=== PATIENT | female | born 1945 | race Caucasian/White ===

== ENCOUNTER 2016-12-22 08:54 | Inpatient (IN) | payer MEDICARE, MEDICAID ==
--- NOTE | 2016-12-22 09:17 | ED Physician Chart ---
Chief Complaint/HPI - Patient Information Date Seen:: 12/22/16 Time Seen:: 09:00 Chief Complaint:: cough History of Present Illness:: pt admits to cough x 2 days with dyspnea, fever, chills; no C/P, Abdominal Pain , A/N/V/D/C, hemoptysis, melena, hematochezia, hematemesis, urinary s/s, H/As, neck pain Historian:: Patient, EMS, Medical Records Review:: Nurse's Note Reviewed, Old Chart Reviewed, Transfer documents Reviewed Review of Systems - Review of Systems General/Constitutional: Fever, No fever, Chills, No chills, No weight loss, No weakness, No diaphoresis, Edema, No edema, No loss of appetite Skin: No skin lesions, No rash, No bruising Head: No headache, No light-headedness Eyes: No loss of vision, No pain, No diplopia ENT: No earache, No nasal drainage, No sore throat, No tinnitus Neck: No neck pain, No swelling, No thyromegaly, No stiffness, No mass noted Cardio Vascular: No chest pain, No palpitations, PND, No PND, orthopnea, No orthopnea, No edema Pulmonary: SOB, No SOB, Cough, No cough, No sputum, No wheezing GI: No nausea, No vomiting, No diarrhea, No pain, No melena, No hematochezia, No constipation, No hematemesis G/U: No dysuria, No frequency, No hematuria Musculoskeletal: No bone or joint pain, No back pain, No muscle pain Endocrine: No polyuria, No polydipsia Psychiatric: Prior psych history, No prior psych history, No depression, No anxiety, No suicidal ideation Hematopoietic: No bruising, No lymphadenopathy Allergic/Immuno: No urticaria, No angioedema Neurological: No syncope, No focal symptoms, No weakness, No paresthesia, No headache, No seizure, No dizziness, No confusion, No vertigo Past Medical History - Past Medical History Past Medical History: HTN, DVT/PE, Dyslipidemia, PUD/GERD, Other (Schizophrenia) Family History: HTN, DVT/PE Social History: Smoker, No Alcohol, No Drug Use, Single, Care Facility Surgical History: None Psychiatricy History: Schizophrenia Family Medical History - Family Member Mother History Unknown: Yes Physical Exam - Physical Examination General/Constitutional: Awake, Well-developed, well-nourished, Alert, No distress, GCS 15, Non-toxic appearing, Ambulatory Head: Atraumatic Eyes: Lids, conjuctiva normal, PERRL, EOMI Skin: Nl inspection, No rash, No skin lesions, No ecchymosis, Well hydrated, No lymphadenopathy ENMT: External ears, nose nl, Nasal exam nl, Lips, teeth, gums nl Neck: Nontender, Full ROM w/o pain, No JVD, No nuchal rigidity, No bruit, No mass, No stridor Respiratory: Nl effort/Exclusion, Clear to Auscultation, No Wheeze/Rhonchi/ Rales (Lungs: + rales and rhonchi) Cardio Vascular: RRR (Irregular Irregular Rhythm), No murmur, gallop, rubs, NL S1 S2 GI: No tenderness/rebounding/guarding, No organomegaly, No hernia, Normal BS's, Nondistended, No mass/bruits, No McBurney tenderness : No CVA tenderness Extremities: No tenderness or effusion, Full ROM, normal strength in all extremities, No edema (+ PTE), Normal digits & nails Neuro/Psych: Alert/oriented, DTR's symmetric, Normal sensory exam, Normal motor strength, Judgement/insight normal, Mood normal, Normal gait, No focal deficits Misc: normal gait, Normal back, No paraspinal tenderness Labs/Radiology/EKG Results - Lab Results Results: BNP: 177 - Radiology Results Results: CXR: RLL Infiltrate; + CHF; + Pacemaker - EKG Interpretations EKG Time:: 09:35 (Ectopic Atrial Rhythm; LBBB) ED Septic Shock - . Is Septic Shock (SBP<90, OR Lactate>4 mmol\L) present?: No - <6hrs of presentation: Assessment of Lungs: Rhonchi, Rales Assessment of Heart: Documented in PE EKG Interpretation: Documented in Result Capillary refill evaluation: Capillary refill < 2 secs, Capillary refill > 2 secs, Other, Documented in PE Skin Exam: Edema, Documented in PE Reassessment (Disposition) - Reassessment Reassessment Condition:: Improved - Diagnosis Diagnosis:: Pneumonia; CHF; Dyspnea - Aftercare/Follow up Instructions Aftercare/Follow-Up Instructions:: Counseled pt & family regarding lab results/ diagnosis & need follow up - Patient Disposition Discharge/Transfer:: Acute Care w/in this hosp Admitted to:: Telemetry Spoke to:: Dr. Mejias Condition at Disposition:: Stable, Improved
[2016-12-22 09:45] LABS: % EOSINOPHILS 1.5 % (0.0-5.0); % LYMPHOCYTES 9.6 % (20.0-50.0); % MONOCYTES 9.7 % (2.0-10.0); % NEUTROPHILS 78.2 % (40.0-80.0); HEMATOCRIT 31.6 % (35.0-45.0); HEMOGLOBIN 10.5 gm/dL (11.7-16.1); MEAN CORPUSCULAR HEMOGLOBIN 26.8 pg (27.0-31.0); MEAN CORPUSCULAR HGB CONC 33.1 pg (28.0-36.0); MEAN PLATELET VOLUME 8.7 fl; NEUTROPHILE ABSOLUTE 4.9 Th/cmm (1.8-8.0); PLATELET COUNT 206 Th/cmm (150-400); RED CELL DISTRIBUTION WIDTH 14.7 % (11.5-20.0); WHITE BLOOD COUNT 6.3 Th/cmm (4.8-10.8)
[2016-12-22 09:53] LABS: ANION GAP 9.5 (7.0-16.0); BUN/CREATININE RATIO 15.4; CALCIUM SERUM 9.6 mg/dL (8.6-10.3); CREATININE - SERUM 1.3 mg/dL (0.6-1.2); POTASSIUM SERUM 3.5 mEq/L (3.5-5.1)
[2016-12-22] MEDS ORDERED: Levofloxacin 500mg/100mL 500 MG/100 ML BAG IV ONE ×2 (09:56→10:23)
[2016-12-22 09:57] LABS: TROP I 0.02 ng/mL (0.01-0.05)
[2016-12-22 10:10] LABS: INR 2.28 (0.5-1.4); PROTHROMBIN TIME (TEST) 24.8 SECONDS (9.5-11.5)
[2016-12-22] MEDS ORDERED: Albuterol/Ipratropium Neb 3 ML AERS HHN SCH (11:56)
[2016-12-22] MEDS ORDERED: Albuterol/Ipratropium Neb 3 ML AERS HHN ONE ×2 (12:06→15:29)
--- NOTE | 2016-12-22 12:39 | Internal Medicine Prog Note ---
Internal Medicine Subjective - Subjective Service Date: 12/22/16 ([facility] [id number]) Internal Medicine Objective - Results Result Diagrams: 12/22/16 09:30 12/22/16 09:30 Recent Labs: Laboratory Last Values WBC 6.3 Th/cmm (4.8-10.8) 12/22/16 09:30 RBC 3.90 Mil/cmm (3.80-5.20) 12/22/16 09:30 Hgb 10.5 gm/dL (11.7-16.1) L 12/22/16 09:30 Hct 31.6 % (35.0-45.0) L 12/22/16 09:30 MCV 81.0 fl (81-100) 12/22/16 09:30 MCH 26.8 pg (27.0-31.0) L 12/22/16 09:30 MCHC Differential 33.1 pg (28.0-36.0) 12/22/16 09:30 RDW 14.7 % (11.5-20.0) 12/22/16 09:30 Plt Count 206 Th/cmm (150-400) 12/22/16 09:30 MPV 8.7 fl 12/22/16 09:30 Neutrophils % 78.2 % (40.0-80.0) 12/22/16 09:30 Lymphocytes % 9.6 % (20.0-50.0) L 12/22/16 09:30 Monocytes % 9.7 % (2.0-10.0) 12/22/16 09:30 Eosinophils % 1.5 % (0.0-5.0) 12/22/16 09:30 Basophils % 1.0 % (0.0-2.0) 12/22/16 09:30 PT 24.8 SECONDS (9.5-11.5) H 12/22/16 09:30 INR 2.28 (0.5-1.4) H 12/22/16 09:30 PTT (Actin FS) 40.7 SECONDS (26.0-38.0) H 12/22/16 09:30 D-Dimer 2280 ng/mL (100-400) H 12/22/16 09:30 Sodium 135 mEq/L (136-145) L 12/22/16 09:30 Potassium 3.5 mEq/L (3.5-5.1) 12/22/16 09:30 Chloride 97 mEq/L (98-107) L 12/22/16 09:30 Carbon Dioxide 32.0 mEq/L (21.0-31.0) H 12/22/16 09:30 Anion Gap 9.5 (7.0-16.0) 12/22/16 09:30 BUN 20 mg/dL (7-25) 12/22/16 09:30 Creatinine 1.3 mg/dL (0.6-1.2) H 12/22/16 09:30 Est GFR ( Amer) 52.2 ml/min (>90) 12/22/16 09:30 Est GFR (Non-Af Amer) 43.2 ml/min 12/22/16 09:30 BUN/Creatinine Ratio 15.4 12/22/16 09:30 Glucose 119 mg/dL (70-105) H 12/22/16 09:30 Whole Bld Lactic Acid 0.72 mmol/L (0.60-1.99) 12/22/16 09:30 Calcium 9.6 mg/dL (8.6-10.3) 12/22/16 09:30 Troponin I 0.02 ng/mL (0.01-0.05) 12/22/16 09:30 B-Natriuretic Peptide 177.0 pg/mL (5.0-100.0) H 12/22/16 09:30 - Physical Exam Vitals and I&O: Vital Signs Temp 97.5 F 12/22/16 11:18 Pulse 66 12/22/16 12:00 Resp 16 12/22/16 12:00 BP 125/57 12/22/16 11:18 Pulse Ox 90 12/22/16 12:00 Active Medications: Current Medications Albuterol/Ipratropium (Duoneb Neb) 3 ml HHN Q4H LINDA Stop: 02/20/17 11:55 Last Admin: 12/22/16 12:09 Dose: 3 ml - Procedures Procedures: Procedures Procedure Code Date CATARAC PHACOEMULS/ASPIR 13.41 01/08/99 CATARACT SURG W/IOL 1 STAGE 67518 01/08/99 CONTINUOUS INVASIVE MECHANICAL VENTILATION <96 CONSEC HRS 96.71 09/01/07 FREEING OF BOWEL ADHESION 81847 09/01/07 INSERT INDWELLING CATH 57.94 03/25/10 INSERT LENS AT CATAR EXT 13.71 01/08/99 INSERT TEMP BLADDER CATH 39573 03/25/10 OTH LYSIS-PERITONEAL ADHES 54.59 09/01/07 OTHER OPEN UMBILICAL HERNIORRHAPHY 53.49 09/01/07 RPR UMBIL SHASTA REDUC > 5 YR 13477 09/01/07 SMALL BOWEL FIXATION NEC 46.62 09/01/07 Internal Medicine Assmt/Plan - Assessment Assessment: COMMUNITY ACQUIRED PNA AFIB CHF HTN MORBID OBESITY CHF
[2016-12-22] MEDS ORDERED: Albuterol Nebulizer 2.5mg/3mL IH SCH ×2 (12:45→17:00)
[2016-12-22] MEDS ORDERED: Hydrocortisone Sodium Succ 100 mg Vial IVP SCH (13:00)
[2016-12-22] MEDS ORDERED: Ipratropium Neb 0.5 mg/2.5 mL UD IH SCH (13:00)
--- NOTE | 2016-12-22 13:47 | History & Physical ---
CHIEF COMPLAINT: Cough. HISTORY OF PRESENT ILLNESS: This is a 71-year-old female who has a 2-day history of productive cough associated with shortness of breath and fever. The patient is a resident of [facility]. The patient denies any chest pain, any nausea or vomiting. However, she does state that sometimes when she lies down flat she states that she feels like as if she is drowning. PAST MEDICAL HISTORY: Hypertension, DVT, dyslipidemia, GERD, and schizophrenia, CHF. FAMILY HISTORY: Hypertension. SOCIAL HISTORY: The patient is a smoker, denies any alcohol or any drugs. The patient resides at a [facility]. SURGICAL HISTORY: The patient has a pacemaker. REVIEW OF SYSTEMS: GENERAL: Denies any fevers, any chills. CARDIOVASCULAR: Denies any chest pain. RESPIRATORY: Complaints of shortness of breath and productive cough. GASTROINTESTINAL: Denies any nausea, vomiting or any abdominal pain. GENITOURINARY: Denies any dysuria. All other systems are reviewed by me and are negative. PHYSICAL EXAMINATION: GENERAL: The patient is awake, obese in no apparent distress. VITAL SIGNS: Temperature 97.5, heart rate ____, blood pressure 125/57, respirations 18, O2 92%. HEENT: Head; normocephalic, atraumatic. NECK: Supple. No mass. LUNGS: Rhonchi bilaterally. HEART: Regular rhythm. ABDOMEN: Soft, nontender. LABORATORY DATA: WBC 6.3, H and H 10.5 and 31.6, platelet of 206. D-dimer 2280. Sodium 135, potassium 3.5, chloride 97, carbon dioxide 32.0, BUN 30, creatinine is 1.3. DIAGNOSTICS: The patient had a chest x-ray done in the ER and it shows right lower lobe infiltrate. ASSESSMENT: 1. Community-acquired pneumonia. 2. Atrial fibrillation. 3. Respiratory failure. 4. Congestive heart failure. 5. Morbid obesity. 6. Hypertension. PLAN: The patient to be admitted to the telemetry unit. The patient will have a consultation with Dr. Damon Gillespie and Dr. Antonino Gillespie as well. DuoNeb will also be ordered. The patient to be on ____ monitor. The patient on traffic monitor specialist. The patient will be kept on a low sodium diet. CBC and BMP will be monitored as well. We will continue to monitor the patient. [facility]# [id number]
[2016-12-22] MEDS: Promethazine DM 6.25/15mg-5mL 5 ML SYR PO SCH ×2 (14:16→21:13)
--- NOTE | 2016-12-22 14:50 | Diagnostic Imaging Report ---
Portable chest x-ray HISTORY: Shortness of breath The heart is enlarged but is a very poor inspiration. There are bilateral lower lobe interstitial infiltrates. Findings may be associated with edema and congestive heart failure. Underlying pneumonia cannot be excluded. Clinical correlation is needed. Hernia pacemaker lead wires project over the right atrium and right ventricle. Surgical clips are seen within the upper abdomen. IMPRESSION: 1. Cardiomegaly along with bilateral infiltrates suggesting congestive heart failure and probable edema. Underlying pneumonia cannot be excluded. Clinical correlation is needed.
[2016-12-22] MEDS: cefTRIAXone 1 GM in Sodium Chloride 0.9% 50 ML IV SCH (15:28)
[2016-12-22] MEDS: Albuterol/Ipratropium Neb 3 ML AERS HHN SCH ×2 (15:30→19:08)
[2016-12-22 15:38] VITALS: BP 113/69
[2016-12-22] MEDS: Azithromycin 500 MG in Sodium Chloride 0.9% 250 ML IV SCH (16:07)
[2016-12-22] MEDS ORDERED: ALBUTEROL SULFATE IH SCH (17:00)
[2016-12-22] MEDS: Budesonide 0.5 Mg/2 mL Ud HHN SCH (19:08)
--- NOTE | 2016-12-22 21:52 | Admit Criteria Form ---
Admit Criteria Forms - Admit Criteria Diagnosis: PNEUMONIA, COMMUNITY ACQUIRED Clinical Indications for Admission to Inpatient Care ( Place 'X' for any and all applicable criteria): Admission is indicated for ANY ONE of the following (1)(2)(3): [X]I. Hypoxemia indicated by ANY ONE of the following: [X]a) Oxygen saturation less than 90% while breathing room air [ ]b) PO2 less than 60 mm Hg (8.0 kPa) while breathing room air [ ]c) Chronic lung disease with significant deterioration from baseline oxygenation [ ]II. Appropriate diagnostic testing and treatment unavailable in outpatient or recovery facility (eg,testing or infection control measures unavailable(10) [ ]III. Moderate-risk or high-risk category patients (Pneumonia Severity Index (PSI) class IV or V, or CURB-65 score of 3 or greater). [ ]IV. Outpatient treatment failure as indicated by ANY ONE of the following(9) : [ ]a) Failure to respond to antibiotic (eg, resistant organism) [ ]b) Clinically significant adverse effects from medication (eg, vomiting) [ ]c) Complications of pneumonia (eg, empyema, bacteremia) [ ]d) Significant worsening of comorbid cond necessitating inpatient care (eg, chronic heart failure) [ ]V. Intermediate-risk category patients (eg, PSI class III or CURB-65 score 2) who do not improve with initial therapy and observation. [ ]. Immunocompromised patients (eg, AIDS, chronic steroid use) at moderate or high risk based on clinical evaluation. [ ]VII. Complicated pleural effusions (eg, exudative, loculated) [ ]VIII.Hemodynamic instability [ ] IX. Altered mental status that is severe or persistent. [ ]X. Dehydration that is severe or persistent. [ ]XI. Bacteremia [ ]XII. Respiratory finding (eg. tachypnea) that do not respond to outpatient or observation care treatment Extended stay beyond goal length of stay may be needed for (20) [ ]a) Unclear diagnosis [ ]b) Pleural disease [ ]c) Severe pneumonia or treatment failure (25 [ ]d) Respiratory failure (anticipate invasive or noninvasive ventilatory support) [ ]e) Abnormal serum electrolytes (serum Na concentration less than 135 mEq/L (mmol/L) (32)(33) [ ]f) Clinically significant comorbid illness (eg, heart failure, atrial fibrillation with rapid heart rate, alcohol withdrawal, renal insufficiency)(34)(35) [ ]g) Comorbid acute exacerbation of COPD(36) [ ]h) Concomitant diagnosis of malignancy that may be associated with malnutrition, immunologic impairment, or bronchial obstruction. [ ]i) Concomitant altered mental status [ ]j) Culture-identified Gram-negative or antibiotic-resistant organism (eg, Pseudomonas, methicillin-resistant Staphylococcus aureus)(30) [ ]k) Healthcare-associated pneumonia The original [facility] [employer] content created by [employer] has been revised. The portions of the content which have been revised are identified through the use of italic text or in bold, and [facility] has neither reviewed nor approved the modified material. All other unmodified content is copyright [facility] [employer]. Please see references footnoted in the original [facility] [employer] edition 2016 Admit Criteria Met?: Yes
--- NOTE | 2016-12-23 05:08 | Consultation ---
REASON FOR CONSULTATION: Coughing and shortness of breath. CONSULT NOTE: This is a 71 years old female, who has a history of significant morbid obesity, history of pacemaker put in showing some cardiac arrhythmia, with coronary artery disease, presents with history of few days of ____ coughing, some wheezing, some shortness of breath, but says ____ coughing is going for the last couple of months, did give history of some wheezing. Denies much of sputum expectoration. Denied ofany fever, any pleuritic chest pain, or any swelling of the legs. As the patient's symptoms persisted there was question of pneumonia/____ congestive heart failure. The patient was admitted for further care and necessary treatment. She has some dyspeptic symptoms, has history of snoring, history of weakness and tiredness, and history of significant morbid obesity. PAST MEDICAL HISTORY: Hypertension, dyslipoproteinemia, gastroesophageal reflux disease, and also schizophrenia. FAMILY HISTORY: Hypertension. SOCIAL HISTORY: Smoking history: None. Denies ever smoking. Denies alcohol or any illicit drug. Lives in a board and care. PHYSICAL EXAMINATION: GENERAL: This is an elderly, slightly heavy set looking female, awake, alert, oriented, not in any acute distress. VITAL SIGNS: The patient's recorded vitals, temperature is 97.5, pulse is in 60s, respirations 20s, saturation 92% on room air. HEENT: Examination of the head is essentially unremarkable. Pupils appear to be equal and reacting to light. Conjunctivae are slightly pallor. Oral cavity essentially unremarkable with small oropharyngeal opening with lower jaw edentulous. NECK: No nodes in the neck could be palpated. Good bilateral carotid upstroke. CHEST: Shows scattered wheezing with diminished air entry. HEART: ____ regular. ABDOMEN: Soft, nontender. EXTREMITIES: Shows no peripheral edema. LABORATORY DATA: White count is 6.3, hemoglobin 10.5, INR is 2.2. Electrolytes; BUN is 20, BNP is 177, glucose is 117. Chest x-ray shows portable, technique-heavy interstitial marking at both the bases. ASSESSMENT/IMPRESSION: The patient with persistent coughing and wheezing, most likely this is asthmatic bronchitis, complicated by gastroesophageal reflux disease and also suspect obstructive sleep apnea syndrome with previous history of cardiovascular disorder including pacemaker put and other things. PLANS AND SUGGESTIONS: We will give inhaled bronchodilator, empiric antibiotics, sputum studies, and also we will get a CT of chest for better evaluation and see how she does and go from there. [facility]# [id number]
--- NOTE | 2016-12-23 05:10 | Consultation ---
The patient of Dr. Mejias. HISTORY AND PHYSICAL: This is a 45-[id number] morbidly obesity female patient who was recently discharged from [facility]. The patient started complaining of shortness of breath, cough with expectoration, following this the patient was brought to the Emergency Room and the patient is admitted for pneumonia, acute exacerbation of asthma and congestive heart failure. PAST MEDICAL HISTORY: The patient has a history of congestive heart failure, diastolic dysfunction, asthma, sick sinus syndrome with pacemaker, GERD, schizophrenia, hypertension, DVT of the leg, hyperlipidemia, morbid obesity, obstructive sleep apnea, paroxysmal atrial fibrillation, small pericardial effusion, left atrial enlargement, trace mitral regurgitation, trace tricuspid regurgitation, ejection fraction 55%, major depression, vitamin D deficiency and COPD. FAMILY HISTORY: Unremarkable. SOCIAL HISTORY: The patient has no history of smoking or alcohol abuse at the present time. ALLERGIES: No known allergies. PHYSICAL EXAMINATION: VITAL SIGNS: Blood pressure 140/80, pulse 88 and respirations 28. HEAD: Normocephalic. No lumps or bumps. EYES: Pupils equal, reactive to light. Fundi show AV nicking, sclerae white, conjunctivae pink. NECK: Carotid 2+. Normal upstroke. JVD 10 cm above the sternal angle. Thyroid not palpable. Lymph nodes not palpable. CHEST: Shows increased AP diameter. No kyphosis or scoliosis. LUNGS: Bilateral wheezing, rhonchi and prolonged expiration. HEART: PMI fifth intercostal space with [id number] line. S1, S2, S3, S4, systolic murmur, grade 2/6, lower left sternal border without radiation. ABDOMEN: Soft. Liver and spleen not palpable. The patient has morbid obesity. Hepatojugular reflux palpitation. No organomegaly. Bowel sounds active. RECTAL: Deferred. EXTREMITIES: Peripheral pulses 1+ and pedal edema 1+. CLINICAL IMPRESSION: 1. Pneumonia. 2. Acute exacerbation of asthma. 3. Congestive heart failure, diastolic dysfunction, sick sinus syndrome with pacemaker, gastroesophageal reflux disease, schizophrenia, hypertension, DVT in the legs, hyperlipidemia, morbid obesity, obstructive sleep apnea, paroxysmal atrial fibrillation and small pericardial effusion. PLAN: Admit the patient. Continue the patient on present management, get echocardiogram, diuretics and BNP level. J[facility]# [id number]
[2016-12-23 07:28] LABS: HEMATOCRIT 32.8 % (35.0-45.0); HEMOGLOBIN 10.7 gm/dL (11.7-16.1); MEAN CELL VOLUME 80.2 fl (81-100); MEAN CORPUSCULAR HEMOGLOBIN 26.2 pg (27.0-31.0); MEAN CORPUSCULAR HGB CONC 32.7 pg (28.0-36.0); PLATELET COUNT 203 Th/cmm (150-400); RED BLOOD COUNT 4.09 Mil/cmm (3.80-5.20); RED CELL DISTRIBUTION WIDTH 14.7 % (11.5-20.0); WHITE BLOOD COUNT 5.8 Th/cmm (4.8-10.8)
[2016-12-23 07:41] LABS: BUN - UREA NITROGEN 15 mg/dL (7-25); BUN/CREATININE RATIO 13.6; CALCIUM SERUM 9.5 mg/dL (8.6-10.3); CARBON DIOXIDE 34.3 mEq/L (21.0-31.0); CHLORIDE 104 mEq/L (98-107); CREATININE - SERUM 1.1 mg/dL (0.6-1.2); GLUCOSE 119 mg/dL (70-105); POTASSIUM SERUM 3.3 mEq/L (3.5-5.1); SODIUM SERUM 138 mEq/L (136-145)
[2016-12-23 07:43] LABS: ALB/GLOB RATIO 0.8 (1.0-1.8); BILIRUBIN,TOTAL 0.3 mg/dL (0.3-1.0)
[2016-12-23] MEDS: Ipratropium Neb 0.5 mg/2.5 mL UD IH SCH (07:45)
[2016-12-23] MEDS: Budesonide 0.5 Mg/2 mL Ud HHN SCH ×2 (07:46→19:42)
[2016-12-23] MEDS: Albuterol/Ipratropium Neb 3 ML AERS HHN SCH ×4 (07:46→19:42)
[2016-12-23 08:16] LABS: TSH 0.61 uIU/ml (0.34-5.60)
[2016-12-23] MEDS: Promethazine DM 6.25/15mg-5mL 5 ML SYR PO SCH ×3 (08:16→20:47)
[2016-12-23] MEDS: Aspirin 81mg Chewable Tab PO SCH (08:17)
--- NOTE | 2016-12-23 08:49 | Diagnostic Imaging Report ---
CT scan of the chest without intravenous contrast HISTORY: Pneumonia Total DLP equals 428 CTDI equals 12.1 Axial sections were obtained from a level above the clavicles down to level below the diaphragm. The heart is enlarged. Findings consistent with a small pericardial effusion or pericardial thickening noted. There is a moderate-sized hiatal hernia. No other abnormal mediastinal masses. There are small bilateral pleural effusions. Bilateral lower lobe pulmonary parenchymal densities consistent with pneumonia and/or atelectasis noted. Limited sections of the diaphragm demonstrate multiple surgical clips in the region of the left renal fossa and brianna hepatis region. IMPRESSION: 1. Bilateral predominantly lower lobe pulmonary parenchymal changes consistent with atelectasis and/or pneumonia. 2. Marked cardiomegaly with evidence of a small pericardial effusion or pericardial thickening 3. Moderate retrocardiac hiatal hernia 4. Surgical changes within the upper abdomen and left renal fossa region.
[2016-12-23] MEDS ORDERED: Pneumococcal Vaccine 0.5 mL Vial IM ONE (09:00)
[2016-12-23] MEDS ORDERED: RANITIDINE HCL 150 MG PO SCH (09:00)
[2016-12-23 10:06] LABS: BAND NEUTROPHILE 1 % (0-10); EOSINOPHIL 1 % (0-5); NEUTROPHILS 66 % (40-80); TOTAL CELLS COUNTED 100
[2016-12-23 10:07] LABS: ANISOCYTOSIS 1+; PLATELET ESTIMATE ADEQUATE (NORMAL); PLATELET MORPHOLOGY PLATELET CLUMPS SEEN (NORMAL)
[2016-12-23 10:08] LABS: pH 7.38 (7.35-7.45)
[2016-12-23 10:09] LABS: ABG SOURCE Arterial; ALLEN TEST Positive; BE(B) 10.9 mEq/L (-3.0-3.0); FIO2 36; HCO3 33.3 mEq/L (20.0-26.0)
[2016-12-23] MEDS ORDERED: Albuterol Nebulizer 2.5mg/3mL HHN SCH (11:00)
--- NOTE | 2016-12-23 12:46 | Cardiology ---
Patient of Dr. Mejias. M-MODE ECHOCARDIOGRAM: Mitral valve, anterior leaflet of mitral valve shows normal excursion, EF velocity. Posterior leaflet of the mitral valve shows normal excursion. Left ventricular posterior wall shows increased thickness, normal excursion. Interventricular septum shows increased thickness, normal excursion, hypertrophy of the left ventricle, ejection fraction 55%. Left atrium enlarged 4.5 cm. Aortic root shows normal dimension, normal excursion of aortic leaflets. CONCLUSION: Hypertrophy of the left ventricle. Left atrial enlargement, ejection fraction 55%. 2D ECHO: Long axis view showed normal side left ventricle with hypertrophy of the left ventricle. Left atrium enlarged. Aortic root shows normal dimension, normal excursion of aortic leaflets. Short axis view of mitral valve normal. Short axis view of aortic valve normal. Apical four chamber view showed normal sized left ventricle with hypertrophy of the left ventricle. Left atrium enlarged. Right ventricular cavity, right atrium normal, no pericardial effusion. CONCLUSION: Hypertrophy of the left ventricle, ejection fraction 55%. Doppler study shows prominent A wave consistent with poor compliance of left ventricle. Mild tricuspid regurgitation, prominent A wave consistent with poor compliance of left ventricle. [facility]# [id number]
[2016-12-23] MEDS: cefTRIAXone 1 GM in Sodium Chloride 0.9% 50 ML IV SCH (12:58)
[2016-12-23] MEDS ORDERED: Potassium Chloride 20 mEq ER Tab PO ONE ×2 (13:00→14:48)
[2016-12-23] MEDS: Azithromycin 500 MG in Sodium Chloride 0.9% 250 ML IV SCH (14:10)
--- NOTE | 2016-12-23 14:51 | Internal Medicine Prog Note ---
Internal Medicine Subjective - Subjective Patient seen and examined:: with staff, chart reviewed Patient is:: awake, interactive Patient Complaints of:: congestion Per staff patient is:: noncompliant, confused Internal Medicine Objective - Results Result Diagrams: 12/23/16 06:30 12/23/16 06:30 Recent Labs: Laboratory Last Values WBC 5.8 Th/cmm (4.8-10.8) 12/23/16 06:30 RBC 4.09 Mil/cmm (3.80-5.20) 12/23/16 06:30 Hgb 10.7 gm/dL (11.7-16.1) L 12/23/16 06:30 Hct 32.8 % (35.0-45.0) L 12/23/16 06:30 MCV 80.2 fl (81-100) L 12/23/16 06:30 MCH 26.2 pg (27.0-31.0) L 12/23/16 06:30 MCHC Differential 32.7 pg (28.0-36.0) 12/23/16 06:30 RDW 14.7 % (11.5-20.0) 12/23/16 06:30 Plt Count 203 Th/cmm (150-400) 12/23/16 06:30 MPV 9.0 fl 12/23/16 06:30 Neutrophils % 78.2 % (40.0-80.0) 12/22/16 09:30 Band Neutrophils % 1 % (0-10) 12/23/16 06:30 Lymphocytes % 9.6 % (20.0-50.0) L 12/22/16 09:30 Monocytes % 9.7 % (2.0-10.0) 12/22/16 09:30 Eosinophils % 1.5 % (0.0-5.0) 12/22/16 09:30 Basophils % 1.0 % (0.0-2.0) 12/22/16 09:30 Neutrophils (Manual) 66 % (40-80) 12/23/16 06:30 Lymphocytes 18 % (20-50) L 12/23/16 06:30 Monocytes 14 % (2-10) H 12/23/16 06:30 Eosinophils 1 % (0-5) 12/23/16 06:30 Platelet Estimate ADEQUATE (NORMAL) 12/23/16 06:30 Platelet Morphology PLATELET CLUMPS SEEN (NORMAL) 12/23/16 06:30 Anisocytosis 1+ 12/23/16 06:30 RBC Morph Micro Appear ABNORMAL (NORMAL) 12/23/16 06:30 PT 24.8 SECONDS (9.5-11.5) H 12/22/16 09:30 INR 2.28 (0.5-1.4) H 12/22/16 09:30 PTT (Actin FS) 40.7 SECONDS (26.0-38.0) H 12/22/16 09:30 D-Dimer 2280 ng/mL (100-400) H 12/22/16 09:30 Specimen Source Arterial 12/23/16 09:46 Sample Site Right Radial 12/23/16 09:46 pH 7.38 (7.35-7.45) 12/23/16 09:46 pCO2 65.0 mmHg (35.0-45.0) H* 12/23/16 09:46 pO2 59.0 mmHg (80.0-100.0) L 12/23/16 09:46 HCO3 33.3 mEq/L (20.0-26.0) H 12/23/16 09:46 Base Excess 10.9 mEq/L (-3.0-3.0) H 12/23/16 09:46 O2 Saturation 90.0 % (92.0-100.0) L 12/23/16 09:46 Nils Test Positive 12/23/16 09:46 Inspired O2 36 12/23/16 09:46 Critical Value PING 12/23/16 09:46 Sodium 138 mEq/L (136-145) 12/23/16 06:30 Potassium 3.3 mEq/L (3.5-5.1) L 12/23/16 06:30 Chloride 104 mEq/L (98-107) 12/23/16 06:30 Carbon Dioxide 34.3 mEq/L (21.0-31.0) H 12/23/16 06:30 Anion Gap 3.0 (7.0-16.0) L 12/23/16 06:30 BUN 15 mg/dL (7-25) 12/23/16 06:30 Creatinine 1.1 mg/dL (0.6-1.2) 12/23/16 06:30 Est GFR ( Amer) > 60.0 ml/min (>90) 12/23/16 06:30 Est GFR (Non-Af Amer) 52.3 ml/min 12/23/16 06:30 BUN/Creatinine Ratio 13.6 12/23/16 06:30 Glucose 119 mg/dL (70-105) H 12/23/16 06:30 Whole Bld Lactic Acid 0.72 mmol/L (0.60-1.99) 12/22/16 09:30 Calcium 9.5 mg/dL (8.6-10.3) 12/23/16 06:30 Total Bilirubin 0.3 mg/dL (0.3-1.0) 12/23/16 06:30 Direct Bilirubin 0.00 mg/dL (0.0-0.2) 12/23/16 06:30 AST 16 U/L (13-39) 12/23/16 06:30 ALT 14 U/L (7-52) 12/23/16 06:30 Alkaline Phosphatase 67 U/L (34-104) 12/23/16 06:30 Ammonia 42 umol/L (16-53) 12/23/16 06:30 Troponin I 0.02 ng/mL (0.01-0.05) 12/22/16 09:30 B-Natriuretic Peptide 177.0 pg/mL (5.0-100.0) H 12/22/16 09:30 Total Protein 6.8 gm/dL (6.0-8.3) 12/23/16 06:30 Albumin 3.1 gm/dL (3.7-5.3) L 12/23/16 06:30 Globulin 3.7 gm/dL 12/23/16 06:30 Albumin/Globulin Ratio 0.8 (1.0-1.8) L 12/23/16 06:30 TSH 0.61 uIU/ml (0.34-5.60) 12/23/16 06:30 - Physical Exam Vitals and I&O: Vital Signs Temp 98.2 F 12/23/16 08:00 Pulse 60 12/23/16 11:35 Resp 16 12/23/16 11:35 BP 123/56 12/23/16 08:16 Pulse Ox 90 12/23/16 11:35 Intake & Output 12/22/16 12/23/16 12/23/16 18:59 06:59 18:59 Intake Total 300 Balance 300 Intake: Intake, IV Amount 300 Azithromycin 500 mg In 250 Sodium Chloride 0.9% 250 ml @ 250 mls/hr IV Q24HR [facility] Rx#:[id number] cefTRIAXone 1 gm In 50 Sodium Chloride 0.9% 50 ml @ 100 mls/hr IV Q24HR [facility] Rx#:[id number] Other: # Voids 2 # Bowel Movements 0 Stool Characteristics Soft Soft Soft Formed Formed Formed Active Medications: Current Medications Acetaminophen (Tylenol) 650 mg PO Q4HR PRN PRN Reason: Pain or Fever >101 Stop: 02/20/17 13:09 Albuterol Sulfate (Albuterol 2.5mg/3ml Neb Ud) 2.5 mg HHN QIDRT [facility] Stop: 02/20/17 16:59 Albuterol/Ipratropium (Duoneb Neb) 3 ml HHN [id number] [facility] Stop: 02/20/17 14:59 Last Admin: 12/23/16 14:41 Dose: 3 ml Aspirin (Aspirin Chewable) 81 mg PO DAILY [facility] Stop: 02/21/17 08:59 Last Admin: 12/23/16 08:17 Dose: 81 mg Budesonide (Pulmicort) 0.5 mg HHN BIDRT [facility] Stop: 02/20/17 18:59 Last Admin: 12/23/16 07:46 Dose: 0.5 mg Clonidine HCl (Catapres) 0.1 mg PO Q6HR PRN PRN Reason: SBP GREATER THAN 160 Stop: 02/20/17 13:09 Famotidine (Pepcid) 20 mg PO BID [facility] Stop: 02/20/17 16:59 Last Admin: 12/23/16 08:17 Dose: 20 mg Furosemide (Lasix) 40 mg IVP DAILY [facility] Stop: 02/21/17 08:59 Last Admin: 12/23/16 08:16 Dose: 40 mg Gabapentin (Neurontin) 100 mg PO TID [facility] Stop: 02/20/17 13:59 Last Admin: 12/23/16 14:12 Dose: 100 mg Ceftriaxone Sodium 1 gm/ (Sodium Chloride) 50 mls @ 100 mls/hr IV Q24HR [facility] Stop: 02/20/17 12:44 Last Admin: 12/23/16 12:58 Dose: 100 mls/hr Azithromycin 500 mg/ Sodium (Chloride) 250 mls @ 250 mls/hr IV Q24HR [facility] Stop: 02/20/17 14:29 Last Admin: 12/23/16 14:10 Dose: 250 mls/hr Ipratropium [place] (Atrovent Neb 0.5mg/2.5ml) 0.5 mg IH QID [facility] Stop: 02/20/17 16:59 Losartan Potassium (Cozaar) 50 mg PO BID [facility] Stop: 02/20/17 16:59 Last Admin: 12/23/16 08:12 Dose: Not Given Montelukast Sodium (Singulair) 10 mg PO DAILY [facility] Stop: 02/21/17 08:59 Last Admin: 12/23/16 08:18 Dose: 10 mg Ondansetron HCl (Zofran) 4 mg IV Q8H PRN PRN Reason: Nausea / Vomiting Stop: 02/20/17 13:09 Potassium Chloride (Klor-Con) 40 meq PO X1 [facility] Stop: 12/23/16 14:49 Promethazine HCl/Dextromethorphan (Phenergan Dm 6.25/15mg-5 Ml) 5 ml PO TID [facility] Stop: 02/20/17 13:59 Last Admin: 12/23/16 14:12 Dose: 5 ml Quetiapine Fumarate (Seroquel) 300 mg PO HS [facility] PRN Reason: Protocol Stop: 02/20/17 20:59 Last Admin: 12/22/16 21:13 Dose: 300 mg Tramadol HCl (Ultram) 50 mg PO Q8H PRN PRN Reason: PAIN Stop: 02/20/17 12:38 Last Admin: 12/23/16 05:25 Dose: 50 mg Warfarin Sodium (Coumadin) 3 mg PO 1300 [facility] PRN Reason: Protocol Stop: 02/21/17 08:59 Last Admin: 12/23/16 12:56 Dose: 3 mg General: lethargic, congested HEENT: NC/AT, PERRLA Neck: Supple, No JVD Lungs: congested, wheezing, rales Cardiovascular: RRR, Normal S1, Normal S2 Abdomen: soft non-tender, globular, positive bowel sound Extremities: excoriation, contracture Neurological: disorganized, unsteady, unable to follow command - Procedures Procedures: Procedures Procedure Code Date CATARAC PHACOEMULS/ASPIR 13.41 01/08/99 CATARACT SURG W/IOL 1 STAGE 95100 01/08/99 CONTINUOUS INVASIVE MECHANICAL VENTILATION <96 CONSEC HRS 96.71 09/01/07 FREEING OF BOWEL ADHESION 70278 09/01/07 INSERT INDWELLING CATH 57.94 03/25/10 INSERT LENS AT CATAR EXT 13.71 01/08/99 INSERT TEMP BLADDER CATH 37608 03/25/10 OTH LYSIS-PERITONEAL ADHES 54.59 09/01/07 OTHER OPEN UMBILICAL HERNIORRHAPHY 53.49 09/01/07 RPR UMBIL SHASTA REDUC > 5 YR 03860 09/01/07 SMALL BOWEL FIXATION NEC 46.62 09/01/07 Internal Medicine Assmt/Plan - Assessment Assessment: COMMUNITY ACQUIRED PNA AFIB CHF HTN MORBID OBESITY CHF - Plan Plan: cont on iv abx o2 bronchodilator check cxr namrata cisse
--- NOTE | 2016-12-24 00:49 | Progress Notes ---
PROBLEM LIST: 1. Acute exacerbation of asthmatic bronchitis. 2. Cardiac arrhythmia. 3. Suspect obstructive sleep apnea syndrome. 4. History of psychiatric illness. SYMPTOMS: The patient is feeling better, less shortness of breath, etc., very minimal coughing, which is not much productive. PHYSICAL EXAMINATION: VITAL SIGNS: Temperature is 98, heart rate is in 60s, respiration 16 and saturation 90% on 3 liters of oxygen. NECK: Veins not visualized. Good bilateral carotid upstroke. CHEST: Shows dorsal kyphosis with occasional rhonchi. HEART: Regular. ABDOMEN: Soft and nontender. LABORATORY DATA: White count is 5.8, eosinophils is 1 and the patient's ABG shows compensated respiratory acidemia on 36% of oxygen. ASSESSMENT: The patient is clinically stable, slightly evnjd-eo-hczcnpt respiratory failure with acute asthmatic bronchitis with underlying component of cardia associated with obstructive sleep apnea syndrome. PLANS AND SUGGESTIONS: We will go ahead and continue current treatment, follow up another chest x-ray, etc., and blood gases and start mobilizing the patient and go from there. JOB# [id number]
[2016-12-24 07:19] LABS: % BASOPHILS 0.8 % (0.0-2.0); % EOSINOPHILS 2.9 % (0.0-5.0); % MONOCYTES 14.2 % (2.0-10.0); % NEUTROPHILS 65.1 % (40.0-80.0); HEMATOCRIT 32.4 % (35.0-45.0); HEMOGLOBIN 10.7 gm/dL (11.7-16.1); MEAN CELL VOLUME 80.4 fl (81-100); MEAN CORPUSCULAR HEMOGLOBIN 26.5 pg (27.0-31.0); MEAN CORPUSCULAR HGB CONC 32.9 pg (28.0-36.0); MEAN PLATELET VOLUME 8.9 fl; NEUTROPHILE ABSOLUTE 3.4 Th/cmm (1.8-8.0); PLATELET COUNT 212 Th/cmm (150-400); RED BLOOD COUNT 4.03 Mil/cmm (3.80-5.20); RED CELL DISTRIBUTION WIDTH 15.1 % (11.5-20.0); WHITE BLOOD COUNT 5.2 Th/cmm (4.8-10.8)
[2016-12-24] MEDS: Budesonide 0.5 Mg/2 mL Ud HHN SCH ×2 (07:31→19:14)
[2016-12-24] MEDS: Albuterol/Ipratropium Neb 3 ML AERS HHN SCH ×2 (07:31→19:14)
[2016-12-24 08:09] LABS: T3 FREE 1.6 pg/mL (2.0-4.4); T4 FREE 1.39 ng/dL (0.82-1.77)
[2016-12-24 08:28] LABS: BUN - UREA NITROGEN 12 mg/dL (7-25); CALCIUM SERUM 9.5 mg/dL (8.6-10.3); CHLORIDE 102 mEq/L (98-107); GLUCOSE 115 mg/dL (70-105); POTASSIUM SERUM 3.8 mEq/L (3.5-5.1); SODIUM SERUM 140 mEq/L (136-145)
[2016-12-24 08:46] LABS: ANION GAP 7.2 (7.0-16.0); CARBON DIOXIDE 34.6 mEq/L (21.0-31.0)
--- NOTE | 2016-12-24 09:26 | Diagnostic Imaging Report ---
CHEST X-RAY: AP view INDICATION: Shortness of breath, hypoxemia COMPARISON: Chest x-ray 12/22/[address] chest on 12/22/2016 FINDINGS: Left chest wall pacemaker apparatus is again noted with leads in the region right atrium and right ventricle. Congestive changes seen with hazy bilateral infiltrates and small left effusion. Cardiomegaly is noted with atherosclerosis. Degenerative changes of the spine are noted. Postsurgical changes of the upper abdomen is noted. IMPRESSION: Congestive changes with hazy bilateral infiltrates and small left effusion. Cardiomegaly and atherosclerotic vascular disease. Pacemaker noted.
[2016-12-24] MEDS: Aspirin 81mg Chewable Tab PO SCH (09:36)
[2016-12-24] MEDS: Promethazine DM 6.25/15mg-5mL 5 ML SYR PO SCH ×3 (09:37→20:46)
[2016-12-24] MEDS: Ipratropium Neb 0.5 mg/2.5 mL UD IH SCH (12:35)
--- NOTE | 2016-12-24 13:05 | Internal Medicine Prog Note ---
Internal Medicine Subjective - Subjective Service Date: 12/24/16 Patient seen and examined:: with staff Patient Complaints of:: congestion Per staff patient is:: no adverse event Internal Medicine Objective - Results Result Diagrams: 12/24/16 06:10 12/24/16 06:10 Recent Labs: Laboratory Last Values WBC 5.2 Th/cmm (4.8-10.8) 12/24/16 06:10 RBC 4.03 Mil/cmm (3.80-5.20) 12/24/16 06:10 Hgb 10.7 gm/dL (11.7-16.1) L 12/24/16 06:10 Hct 32.4 % (35.0-45.0) L 12/24/16 06:10 MCV 80.4 fl (81-100) L 12/24/16 06:10 MCH 26.5 pg (27.0-31.0) L 12/24/16 06:10 MCHC Differential 32.9 pg (28.0-36.0) 12/24/16 06:10 RDW 15.1 % (11.5-20.0) 12/24/16 06:10 Plt Count 212 Th/cmm (150-400) 12/24/16 06:10 MPV 8.9 fl 12/24/16 06:10 Neutrophils % 65.1 % (40.0-80.0) 12/24/16 06:10 Band Neutrophils % 1 % (0-10) 12/23/16 06:30 Lymphocytes % 17.0 % (20.0-50.0) L 12/24/16 06:10 Monocytes % 14.2 % (2.0-10.0) H 12/24/16 06:10 Eosinophils % 2.9 % (0.0-5.0) 12/24/16 06:10 Basophils % 0.8 % (0.0-2.0) 12/24/16 06:10 Neutrophils (Manual) 66 % (40-80) 12/23/16 06:30 Lymphocytes 18 % (20-50) L 12/23/16 06:30 Monocytes 14 % (2-10) H 12/23/16 06:30 Eosinophils 1 % (0-5) 12/23/16 06:30 Platelet Estimate ADEQUATE (NORMAL) 12/23/16 06:30 Platelet Morphology PLATELET CLUMPS SEEN (NORMAL) 12/23/16 06:30 Anisocytosis 1+ 12/23/16 06:30 RBC Morph Micro Appear ABNORMAL (NORMAL) 12/23/16 06:30 PT 24.8 SECONDS (9.5-11.5) H 12/22/16 09:30 INR 2.28 (0.5-1.4) H 12/22/16 09:30 PTT (Actin FS) 40.7 SECONDS (26.0-38.0) H 12/22/16 09:30 D-Dimer 2280 ng/mL (100-400) H 12/22/16 09:30 Specimen Source Arterial 12/23/16 09:46 Sample Site Right Radial 12/23/16 09:46 pH 7.38 (7.35-7.45) 12/23/16 09:46 pCO2 65.0 mmHg (35.0-45.0) H* 12/23/16 09:46 pO2 59.0 mmHg (80.0-100.0) L 12/23/16 09:46 HCO3 33.3 mEq/L (20.0-26.0) H 12/23/16 09:46 Base Excess 10.9 mEq/L (-3.0-3.0) H 12/23/16 09:46 O2 Saturation 90.0 % (92.0-100.0) L 12/23/16 09:46 Nils Test Positive 12/23/16 09:46 Inspired O2 36 12/23/16 09:46 Critical Value PING 12/23/16 09:46 Sodium 140 mEq/L (136-145) 12/24/16 06:10 Potassium 3.8 mEq/L (3.5-5.1) 12/24/16 06:10 Chloride 102 mEq/L (98-107) 12/24/16 06:10 Carbon Dioxide 34.6 mEq/L (21.0-31.0) H 12/24/16 06:10 Anion Gap 7.2 (7.0-16.0) 12/24/16 06:10 BUN 12 mg/dL (7-25) 12/24/16 06:10 Creatinine 1.0 mg/dL (0.6-1.2) 12/24/16 06:10 Est GFR ( Amer) > 60.0 ml/min (>90) 12/24/16 06:10 Est GFR (Non-Af Amer) 58.4 ml/min 12/24/16 06:10 BUN/Creatinine Ratio 12.0 12/24/16 06:10 Glucose 115 mg/dL (70-105) H 12/24/16 06:10 Whole Bld Lactic Acid 0.72 mmol/L (0.60-1.99) 12/22/16 09:30 Calcium 9.5 mg/dL (8.6-10.3) 12/24/16 06:10 Magnesium 2.0 mg/dL (1.9-2.7) 12/24/16 06:10 Total Bilirubin 0.3 mg/dL (0.3-1.0) 12/23/16 06:30 Direct Bilirubin 0.00 mg/dL (0.0-0.2) 12/23/16 06:30 AST 16 U/L (13-39) 12/23/16 06:30 ALT 14 U/L (7-52) 12/23/16 06:30 Alkaline Phosphatase 67 U/L (34-104) 12/23/16 06:30 Ammonia 42 umol/L (16-53) 12/23/16 06:30 Troponin I 0.02 ng/mL (0.01-0.05) 12/22/16 09:30 B-Natriuretic Peptide 234.0 pg/mL (5.0-100.0) H 12/24/16 06:10 Total Protein 6.8 gm/dL (6.0-8.3) 12/23/16 06:30 Albumin 3.1 gm/dL (3.7-5.3) L 12/23/16 06:30 Globulin 3.7 gm/dL 12/23/16 06:30 Albumin/Globulin Ratio 0.8 (1.0-1.8) L 12/23/16 06:30 Free T4 1.39 ng/dL (0.82-1.77) 12/23/16 08:25 Free T3 1.6 pg/mL (2.0-4.4) L 12/23/16 08:25 TSH 0.61 uIU/ml (0.34-5.60) 12/23/16 06:30 - Physical Exam Vitals and I&O: Vital Signs Temp 97.8 F 12/24/16 11:57 Pulse 72 12/24/16 12:36 Resp 18 12/24/16 12:36 BP 124/56 12/24/16 11:57 Pulse Ox 94 12/24/16 12:36 Intake & Output 12/23/16 12/24/16 12/24/16 18:59 06:59 18:59 Intake Total 950 300 Balance 950 300 Weight (lbs) 268 lb 6.4 oz Intake: Oral 600 300 Other 350 Other: # Voids 5 2 # Bowel Movements 0 Stool Characteristics Soft Soft Soft Formed Formed Formed Active Medications: Current Medications Acetaminophen (Tylenol) 650 mg PO Q4HR PRN PRN Reason: Pain or Fever >101 Stop: 02/20/17 13:09 Albuterol Sulfate (Albuterol 2.5mg/3ml Neb Ud) 2.5 mg HHN QIDRT [facility] Stop: 02/20/17 16:59 Last Admin: 12/24/16 12:35 Dose: 2.5 mg Albuterol/Ipratropium (Duoneb Neb) 3 ml HHN [id number] [facility] Stop: 02/20/17 14:59 Last Admin: 12/24/16 07:31 Dose: 3 ml Aspirin (Aspirin Chewable) 81 mg PO DAILY [facility] Stop: 02/21/17 08:59 Last Admin: 12/24/16 09:36 Dose: 81 mg Budesonide (Pulmicort) 0.5 mg HHN BIDRT [facility] Stop: 02/20/17 18:59 Last Admin: 12/24/16 07:31 Dose: 0.5 mg Clonidine HCl (Catapres) 0.1 mg PO Q6HR PRN PRN Reason: SBP GREATER THAN 160 Stop: 02/20/17 13:09 Famotidine (Pepcid) 20 mg PO BID [facility] Stop: 02/20/17 16:59 Last Admin: 12/24/16 09:38 Dose: 20 mg Furosemide (Lasix) 40 mg IVP DAILY [facility] Stop: 02/21/17 08:59 Last Admin: 12/23/16 08:16 Dose: 40 mg Gabapentin (Neurontin) 100 mg PO TID [facility] Stop: 02/20/17 13:59 Last Admin: 12/24/16 09:38 Dose: 100 mg Ceftriaxone Sodium 1 gm/ (Sodium Chloride) 50 mls @ 100 mls/hr IV Q24HR [facility] Stop: 02/20/17 12:44 Last Admin: 12/23/16 12:58 Dose: 100 mls/hr Azithromycin 500 mg/ Sodium (Chloride) 250 mls @ 250 mls/hr IV Q24HR [facility] Stop: 02/20/17 14:29 Last Admin: 12/23/16 14:10 Dose: 250 mls/hr Ipratropium [place] (Atrovent Neb 0.5mg/2.5ml) 0.5 mg IH QID [facility] Stop: 02/20/17 16:59 Last Admin: 12/24/16 12:35 Dose: 0.5 mg Losartan Potassium (Cozaar) 50 mg PO BID [facility] Stop: 02/20/17 16:59 Last Admin: 12/24/16 09:38 Dose: 50 mg Montelukast Sodium (Singulair) 10 mg PO DAILY [facility] Stop: 02/21/17 08:59 Last Admin: 12/24/16 09:38 Dose: 10 mg Ondansetron HCl (Zofran) 4 mg IV Q8H PRN PRN Reason: Nausea / Vomiting Stop: 02/20/17 13:09 Promethazine HCl/Dextromethorphan (Phenergan Dm 6.25/15mg-5 Ml) 5 ml PO TID [facility] Stop: 02/20/17 13:59 Last Admin: 12/24/16 09:37 Dose: 5 ml Quetiapine Fumarate (Seroquel) 300 mg PO HS [facility] PRN Reason: Protocol Stop: 02/20/17 20:59 Last Admin: 12/23/16 20:47 Dose: 300 mg Tramadol HCl (Ultram) 50 mg PO Q8H PRN PRN Reason: PAIN Stop: 02/20/17 12:38 Last Admin: 12/23/16 05:25 Dose: 50 mg Warfarin Sodium (Coumadin) 3 mg PO 1300 [facility] PRN Reason: Protocol Stop: 02/21/17 08:59 Last Admin: 12/23/16 12:56 Dose: 3 mg General: alert HEENT: NC/AT Neck: Supple Lungs: CTAB Cardiovascular: RRR, Normal S1, Normal S2, without murmur Abdomen: soft non-tender, non-distended, positive bowel sound Neurological: no change - Procedures Procedures: Procedures Procedure Code Date CATARAC PHACOEMULS/ASPIR 13.41 01/08/99 CATARACT SURG W/IOL 1 STAGE 68402 01/08/99 CONTINUOUS INVASIVE MECHANICAL VENTILATION <96 CONSEC HRS 96.71 09/01/07 FREEING OF BOWEL ADHESION 29307 09/01/07 INSERT INDWELLING CATH 57.94 03/25/10 INSERT LENS AT CATAR EXT 13.71 01/08/99 INSERT TEMP BLADDER CATH 80922 03/25/10 OTH LYSIS-PERITONEAL ADHES 54.59 09/01/07 OTHER OPEN UMBILICAL HERNIORRHAPHY 53.49 09/01/07 RPR UMBIL SHASTA REDUC > 5 YR 71205 09/01/07 SMALL BOWEL FIXATION NEC 46.62 09/01/07 Internal Medicine Assmt/Plan - Assessment Assessment: COMMUNITY ACQUIRED PNA AFIB CHF HTN MORBID OBESITY CHF - Plan Plan: SNF PLACEMENT INHALATION TX SUPPLEMENTAL OXYGEN CONTINUE CURRENT RX Nutritional Asmnt/Malnutr-PDOC - Dietary Evaluation Malnutrition Findings (Please click <Entered> for more info): Nutritional Asmnt/Malnutrition Start: 12/23/16 15: 55 Text: Status: Complete Freq: Document 12/23/16 16:01 GSUN (Rec: 12/23/16 16:19 GSUN [id number]) Nutritional Asmnt/Malnutrition Patient General Information Nutritional Screening High Risk Screening Diagnosis Community acquired PNA, atrial fibrillation, resp failure, CHF Pertinent Medical Hx/Surgical Hx HTN, DVT, dyslipidemia, GERD, schizophrenia, CHF Subjective Information 71 year old female from [facility]. Pt was soundly asleep during first sleep, unable to be woken up. RD visited pt again during meal time, observed pt slowly eating half of tray. Pt with nasal canula, coughing noted, no difficulties with eating observed. Pt apepared slightly confused, poor coordinations, spilling food over gown, pouring coffee into noodles, ignoring all RD's questions, but able to request for ice water. CBW via bedscale 268. 4lb. Current Diet Order/ Nutrition Support Low sodium Pertinent Medications Pepcid, Lasix, Zofran, Seroquel, Coumadin Pertinent Labs 12/23: glucose 119H Nutritional Hx/Data Height 5 ft 7 in Height (Calculated Centimeters) 170.2 Current Weight (lbs) 268 lb 6.4 oz Weight (Calculated Kilograms) 121.7 Weight (Calculated Grams) 774811.2 Robards Body Weight 135lb Weight Status Morbidly Obese GI Symptoms Skin Integrity/Comment: Derrell 18. Skin intact. Estimated Nutritional Goals BEE in Kcals: Adj wt of IBW Calories/Kcals/Kg AdjBW 167lb/76kg Kcals Calculated 2280kcal (30kcal/kg) Protein: Adj wt of IBW Protein Calculated 91-106g (1.2-1.4g/kg) Fluid: ml Per MD (hx. CHF) Nutritional Problem 1. Problem Problem Increased kcal and prot needs related to Etiology hypermetabolic state aeb Signs/Symptoms: pneumonia Intervention/Recommendation Comments 1. Continue with low sodium diet. Pt requires supervision with meals. Expected Outcomes/Goals Expected Outcomes/Goals 1. PO intake to meet at least 75% of estimated nutritional needs.
[2016-12-24] MEDS: cefTRIAXone 1 GM in Sodium Chloride 0.9% 50 ML IV SCH (14:02)
[2016-12-24] MEDS: Azithromycin 500 MG in Sodium Chloride 0.9% 250 ML IV SCH (15:45)
--- NOTE | 2016-12-25 03:44 | Progress Notes ---
PULMONARY PROGRESS NOTE PROBLEM LIST: 1. Acute on chronic respiratory failure. 2. Severe obstructive sleep apnea syndrome. 3. Basal infiltrate. 4. Underlying ____ psychiatric illness symptoms. SYMPTOMS: The patient is feeling so-so. She is able to walk this morning. No respiratory distress. She did use BiPAP 6 hours last night and still coughing, but not much sputum production. PHYSICAL EXAMINATION: VITAL SIGNS: Temperature is 97.8, blood pressure 124/56, and saturation is 93 on 3 liters. NECK: Veins could not be visualized. CHEST: Shows diminished air entry with occasional rhonchi. HEART: Regular. ABDOMEN: Soft, nontender. EXTREMITIES: Shows mild trace of peripheral edema. LABORATORY DATA: The patient's pertinent laboratory studies: CAT scan shows bilateral lower lobe infiltrate and also cardiomegaly, otherwise unremarkable, has some hiatal hernia. The patient's other laboratory studies show white count is 5.2, hemoglobin 10.7, and ABG shows compensated respiratory acidemia on 36%. ASSESSMENT: The patient is clinically improving with slight touch of pneumonia with asthmatic bronchitis with hiatal hernia with suspect obstructive sleep apnea syndrome. PLANS AND SUGGESTIONS: We will continue current treatment of aggressive respiratory care, inhalation treatment, etc., and aggressive physical therapy, continue BiPAP, and I will repeat chest x-ray in next day or two and go from there. JOB# [id number]
[2016-12-25 07:20] LABS: % BASOPHILS 0.8 % (0.0-2.0); % EOSINOPHILS 3.2 % (0.0-5.0); % LYMPHOCYTES 18.5 % (20.0-50.0); % MONOCYTES 13.1 % (2.0-10.0); % NEUTROPHILS 64.4 % (40.0-80.0); HEMATOCRIT 32.9 % (35.0-45.0); HEMOGLOBIN 10.7 gm/dL (11.7-16.1); MEAN CELL VOLUME 79.4 fl (81-100); MEAN CORPUSCULAR HEMOGLOBIN 25.8 pg (27.0-31.0); MEAN CORPUSCULAR HGB CONC 32.5 pg (28.0-36.0); MEAN PLATELET VOLUME 8.6 fl; NEUTROPHILE ABSOLUTE 3.6 Th/cmm (1.8-8.0); PLATELET COUNT 198 Th/cmm (150-400); RED BLOOD COUNT 4.15 Mil/cmm (3.80-5.20); RED CELL DISTRIBUTION WIDTH 14.5 % (11.5-20.0); WHITE BLOOD COUNT 5.5 Th/cmm (4.8-10.8)
[2016-12-25 07:37] LABS: ANION GAP 6.5 (7.0-16.0); BUN - UREA NITROGEN 11 mg/dL (7-25); BUN/CREATININE RATIO 12.2; CALCIUM SERUM 9.8 mg/dL (8.6-10.3); CARBON DIOXIDE 33.5 mEq/L (21.0-31.0); CHLORIDE 101 mEq/L (98-107); CREATININE - SERUM 0.9 mg/dL (0.6-1.2); GLUCOSE 110 mg/dL (70-105); SODIUM SERUM 137 mEq/L (136-145)
[2016-12-25] MEDS: Budesonide 0.5 Mg/2 mL Ud HHN SCH (07:47)
[2016-12-25] MEDS: Albuterol/Ipratropium Neb 3 ML AERS HHN SCH ×3 (07:47→15:13)
[2016-12-25] MEDS: Aspirin 81mg Chewable Tab PO SCH (09:24)
[2016-12-25] MEDS: Promethazine DM 6.25/15mg-5mL 5 ML SYR PO SCH ×2 (09:25→13:15)
[2016-12-25 09:35] LABS: pH 7.42 (7.35-7.45)
[2016-12-25 09:36] LABS: HCO3 10.5 mEq/L (20.0-26.0)
[2016-12-25 09:37] LABS: ABG SOURCE Arterial; ALLEN TEST YES; FIO2 44
[2016-12-25] MEDS: cefTRIAXone 1 GM in Sodium Chloride 0.9% 50 ML IV SCH (11:47)
[2016-12-25] MEDS: Azithromycin 500 MG in Sodium Chloride 0.9% 250 ML IV SCH (15:41)
--- NOTE | 2016-12-25 23:59 | Discharge Summary ---
CHIEF COMPLAINT: Coughing. FINAL DIAGNOSES: Pneumonia, congestive heart failure, chronic respiratory failure, atrial fibrillation, morbid obesity, hypertension. HISTORY: This is a 71 years old female with history of morbid obesity, hypertension, DVT, on anticoagulation, GERD, schizoaffective disorder, was admitted from nursing facility secondary to worsening cough. The patient was brought in the ER and admitted for further management. PHYSICAL EXAMINATION: VITAL SIGNS: Blood pressure 135/____, respirations 18, pulse 70, temperature 97.2. GENERAL: Elderly female, morbidly obese. NECK: Supple. No mass. LUNGS: Equal breath sounds, a few rhonchi. HEART: Regular rate and rhythm without systolic ejection murmur. ABDOMEN: Soft, nontender. EXTREMITIES: Positive excoriations. NEUROLOGIC: Limited. HOSPITAL COURSE: The patient was admitted to telemetry. The patient was referred to Dr. Antonino Gillespie for Pulmonary, Dr. Damon Gillespie for Cardiology. The patient was started on diuretic as well as IV antibiotic. The patient's condition is stable and cleared for discharge. CONDITION ON DISCHARGE: Fair. DISCHARGE INSTRUCTIONS: The patient to continue current medical regimen. The patient to be discharged ____. JOB# [id number]
--- NOTE | 2016-12-26 05:19 | Progress Notes ---
PULMONARY PROGRESS NOTE PROBLEM LIST: 1. Acute respiratory failure. 2. Bilateral patchy pneumonitis. 3. Asthmatic bronchitis. 4. Severe obstructive sleep apnea syndrome. 5. Morbid obesity with underlying history of psychiatric illness. SYMPTOMS: Nil. Feeling so-so. Still coughing and still shortness of breath, but no specific new symptoms. PHYSICAL EXAMINATION: VITAL SIGNS: Temperature is 98, pulse is 70, blood pressure 135/57, and saturation is 93% on 3 liters. NECK: Veins not visualized. CHEST: Shows occasional rhonchi with diminished air entry. HEART: Regular. ABDOMEN: Soft and nontender. LABORATORY DATA: The patient's white count is 5.5 and hemoglobin 10.7. Blood gases show compensated respiratory acidemia with slight decrease in pCO2, pO2 is 60, and this is on 44% of oxygen. ASSESSMENT: The patient clinically appears to be stable, slightly better, biochemically still not very good with significant numbers off the limits. PLANS AND SUGGESTIONS: We will continue current treatment. We will go ahead and get aggressive OT/PT, etc., and go from there. JOB# [id number]
== END 2016-12-25 17:30 | disposition short-term general hospital (02) | DRG 291 ==
LOC: ER 08:54 → TELE 10:46
PROVIDERS: ADMIT Internal Medicine; ATTEND Internal Medicine
DX: I50.23 Acute on chronic systolic (congestive) heart failure (principal); J18.9 Pneumonia, unspecified organism; J96.20 Acute and chronic respiratory failure, unspecified whether with hypoxia or hypercapnia; Z68.41 Body mass index [BMI] 40.0-44.9, adult; J45.901 Unspecified asthma with (acute) exacerbation; J44.0 Chronic obstructive pulmonary disease with (acute) lower respiratory infection; J44.9 Chronic obstructive pulmonary disease, unspecified; I48.0 Paroxysmal atrial fibrillation; I11.0 Hypertensive heart disease with heart failure; E66.01 Morbid (severe) obesity due to excess calories; K21.9 Gastro-esophageal reflux disease without esophagitis; G47.33 Obstructive sleep apnea (adult) (pediatric); E78.5 Hyperlipidemia, unspecified; F17.210 Nicotine dependence, cigarettes, uncomplicated; I25.10 Atherosclerotic heart disease of native coronary artery without angina pectoris; F32.9 Major depressive disorder, single episode, unspecified; E55.9 Vitamin D deficiency, unspecified; K44.9 Diaphragmatic hernia without obstruction or gangrene; F25.9 Schizoaffective disorder, unspecified; Z88.0 Allergy status to penicillin; Z88.1 Allergy status to other antibiotic agents; Z88.8 Allergy status to other drugs, medicaments and biological substances; Z88.5 Allergy status to narcotic agent; Z95.0 Presence of cardiac pacemaker; Z86.718 Personal history of other venous thrombosis and embolism; Z82.49 Family history of ischemic heart disease and other diseases of the circulatory system
CPT/HCPCS: 36415-UA; 36600-90; 71010-TC; 71020-TC; 71250-TC; 80048-TC; 80076-TC; 82140-TC; 82803-TC; 83605; 83735-TC; 83880-TC; 84439-90; 84443-TC; 84479-90; 84484-TC; 85007-TC; 85025-TC; 85027-TC; 85379-TC; 85610-TC; 87070; 90779; 93005; 94640; 94760; 96375; 97530; J0456; J0696; J1940; J1956; J7613; X3904; Z7610